=== PATIENT | male | born 1965 | race Two or more races ===

== ENCOUNTER 2020-05-20 08:59 | Outpatient (REF) | payer MEDICARE, OTHER, SELFPAY ==
[2020-05-20 11:30] LABS: Estimated Average Glucose 128 mg/dL; Hemoglobin A1c % 6.1 %
[2020-05-20 11:33] LABS: Alanine Aminotransferase 12 U/L (0-40); Albumin Level 4.5 g/dL (3.5-5.0); Alkaline Phosphatase 73 U/L (39-117); Anion Gap 13 (12-20); Aspartate Amino Transferase 18 U/L (5-37); Bilirubin Total 1.5 mg/dL (0.0-1.0); Blood Urea Nitrogen 9 mg/dL (9-16); Calcium 9.2 mg/dL (8.4-10.2); Carbon Dioxide 28 mmol/L (22-29); Chloride 104 mmol/L (96-108); Cholesterol 130 mg/dL; Estimated Glomerular Filt Rate > 60; Glucose Random 110 mg/dL (60-115); HDL Cholesterol 31 mg/dL; LDL Cholesterol Calculated 66 mg/dl; Potassium 4.5 mmol/l (3.3-5.1); Sodium 140 mmol/L (135-145); Total Protein 7.3 g/dL (6.5-8.0); Triglycerides 167 mg/dL
== END 2020-05-20 09:00 | disposition home or self-care (01) ==
LOC: HO.LAB 08:59
PROVIDERS: PCP Family Medicine; Visit Provider Family Medicine
DX: E11.9 Type 2 diabetes mellitus without complications (principal)
CPT/HCPCS: 80053; 80061; 83036

== ENCOUNTER 2020-10-11 09:36 | Outpatient (REF) | payer MEDICARE, OTHER, SELFPAY ==
[2020-10-11 10:42] LABS: Estimated Average Glucose 140 mg/dL; Hemoglobin A1c % 6.5 %
[2020-10-11 10:47] LABS: Anion Gap 10 (12-20); Blood Urea Nitrogen 8 mg/dL (9-16); Calcium 9.3 mg/dL (8.4-10.2); Carbon Dioxide 30 mmol/L (22-29); Chloride 105 mmol/L (96-108); Cholesterol 147 mg/dL; Estimated Glomerular Filt Rate > 60; Glucose Random 125 mg/dL (60-115); HDL Cholesterol 35 mg/dL; LDL Cholesterol Calculated 89 mg/dl; Potassium 4.7 mmol/L (3.3-5.1); Sodium 140 mmol/L (135-145); Triglycerides 115 mg/dL
[2020-10-11 11:05] LABS: Microalbum/Creatinine Ratio Ur 13.2 ug/mg cr
== END 2020-10-11 09:37 | disposition home or self-care (01) ==
LOC: HO.LABR 09:36
PROVIDERS: PCP Family Medicine; Visit Provider Family Medicine
DX: E11.9 Type 2 diabetes mellitus without complications (principal)
CPT/HCPCS: 36415; 80048; 80061; 82043; 83036

== ENCOUNTER 2021-04-22 08:59 | Outpatient (REF) | payer MEDICARE, OTHER, SELFPAY ==
[2021-04-22 10:24] LABS: Estimated Average Glucose 148 mg/dL; Hemoglobin A1c % 6.8 %
[2021-04-22 10:30] LABS: Anion Gap 13 (12-20); Blood Urea Nitrogen 10 mg/dL (9-16); Calcium 9.8 mg/dL (8.4-10.2); Carbon Dioxide 26 mmol/L (22-29); Chloride 108 mmol/L (96-108); Cholesterol 162 mg/dL; Estimated Glomerular Filt Rate > 60; Glucose Random 139 mg/dL (60-115); HDL Cholesterol 37 mg/dL; LDL Cholesterol Calculated 94 mg/dl; Potassium 4.8 mmol/L (3.3-5.1); Sodium 142 mmol/L (135-145); Triglycerides 156 mg/dL
[2021-04-22 10:55] LABS: Microalbum/Creatinine Ratio Ur 12.1 ug/mg cr
== END 2021-04-22 09:00 | disposition home or self-care (01) ==
LOC: HO.LAB 08:59
PROVIDERS: PCP Family Medicine; Visit Provider Family Medicine
DX: E78.2 Mixed hyperlipidemia (principal); I10 Essential (primary) hypertension; E11.9 Type 2 diabetes mellitus without complications
CPT/HCPCS: 36415; 80048; 80061; 82043; 83036

== ENCOUNTER 2021-07-11 08:38 | Outpatient (REF) | payer MEDICARE, OTHER, SELFPAY ==
--- NOTE | ~2021-07-11 | XR_ITS ---
EXAMINATION: XR BILATERAL KNEES CLINICAL INFORMATION: Bilateral knee pain. COMPARISON: Previous films are not available at this time to compare. TECHNIQUE: 4 views, left knee. 4 views, right knee. FINDINGS: LEFT KNEE: 4 views of left knee show the patella to be well seated on the sunrise image. Mild patellofemoral spurring. Small effusion cannot be excluded. The medial and lateral joint spaces are fairly well preserved. Some mild tibial spine spurring medially. RIGHT KNEE: 4 views of the right knee demonstrate some lateralization of the patella. There is mild patellofemoral spurring greater than the contralateral side. Mild spurring at the insertion of the quadriceps. No effusion is demonstrated. There is mild medial joint space loss and tibial spine spurring medially and laterally. No acute finding. XR/XR knee LT 4V IMPRESSION: Mild degenerative changes, right greater than left knee, with some lateralization of the patella on the right as described. No acute finding.
--- NOTE | ~2021-07-11 | XR_ITS ---
EXAMINATION: XR BILATERAL KNEES CLINICAL INFORMATION: Bilateral knee pain. COMPARISON: Previous films are not available at this time to compare. TECHNIQUE: 4 views, left knee. 4 views, right knee. FINDINGS: LEFT KNEE: 4 views of left knee show the patella to be well seated on the sunrise image. Mild patellofemoral spurring. Small effusion cannot be excluded. The medial and lateral joint spaces are fairly well preserved. Some mild tibial spine spurring medially. RIGHT KNEE: 4 views of the right knee demonstrate some lateralization of the patella. There is mild patellofemoral spurring greater than the contralateral side. Mild spurring at the insertion of the quadriceps. No effusion is demonstrated. There is mild medial joint space loss and tibial spine spurring medially and laterally. No acute finding. XR/XR knee RT 4V IMPRESSION: Mild degenerative changes, right greater than left knee, with some lateralization of the patella on the right as described. No acute finding.
== END 2021-07-11 08:39 | disposition home or self-care (01) ==
LOC: HO.XRAY 08:38
PROVIDERS: PCP Family Medicine; Visit Provider Family Medicine
DX: M25.561 Pain in right knee (principal); M25.562 Pain in left knee
CPT/HCPCS: 73564

== ENCOUNTER 2021-11-04 09:47 | Outpatient (REF) | payer MEDICARE, OTHER, SELFPAY ==
[2021-11-04 10:17] LABS: Hematocrit 43.9 % (42.0-52.0); Hemoglobin 14.5 g/dl (14.0-18.0); Mean Corpuscular Hemoglobin 28.8 pg (27.0-33.0); Mean Corpuscular Volume 87.1 fL (80.0-98.0); Mean Platelet Volume 9.2 fL (9.4-12.4); Platelet Count 238 X10*3/uL (160-400); Red Blood Count 5.04 X10*6/uL (4.60-5.80); Red Cell Distribution Width 12.8 % (11.0-16.0)
[2021-11-04 10:29] LABS: Estimated Average Glucose 146 mg/dL; Hemoglobin A1c % 6.7 %
[2021-11-04 10:41] LABS: Alanine Aminotransferase 20 U/L (0-40); Albumin Level 4.4 g/dL (3.5-5.0); Alkaline Phosphatase 80 U/L (39-117); Anion Gap 10 (12-20); Aspartate Amino Transferase 20 U/L (5-37); Bilirubin Total 1.2 mg/dL (0.0-1.0); Blood Urea Nitrogen 10 mg/dL (9-16); Calcium 9.7 mg/dL (8.4-10.2); Carbon Dioxide 29 mmol/L (22-29); Chloride 107 mmol/L (96-108); Cholesterol 214 mg/dL; Estimated Glomerular Filt Rate > 60; Glucose Random 111 mg/dL (60-115); HDL Cholesterol 35 mg/dL; LDL Cholesterol Calculated 135 mg/dl; Potassium 4.5 mmol/L (3.3-5.1); Sodium 141 mmol/L (135-145); Total Protein 7.3 g/dL (6.5-8.0); Triglycerides 223 mg/dL
[2021-11-04 11:01] LABS: Prostate Specific Antigen 0.36 ng/mL (<0.05-4.0); Thyroid Stimulating Hormone 0.82 uIU/mL (0.32-4.0); Vitamin D 25-OH Total 15.3 ng/mL (>30)
[2021-11-04 11:14] LABS: Vitamin B12 415 pg/mL (200-900)
== END 2021-11-04 09:48 | disposition home or self-care (01) ==
LOC: HO.LAB 09:47
PROVIDERS: PCP Nurse Practitioner; Visit Provider Nurse Practitioner
DX: Z12.5 Encounter for screening for malignant neoplasm of prostate (principal); R39.12 Poor urinary stream; E78.2 Mixed hyperlipidemia; R53.83 Other fatigue; E11.9 Type 2 diabetes mellitus without complications
CPT/HCPCS: 36415; 80053; 80061; 82306; 82607; 83036; 84153; 84443; 85027